=== PATIENT | male | born 1955 | race Caucasian/White ===

== ENCOUNTER 2019-03-13 13:41 | Outpatient (CLI) | payer OTHER, SELFPAY ==
--- NOTE | 2019-03-13 16:51 | PDOC.EEG ---
Neurology EEG EEG: [facility] Department of Neurology EEG REPORT Date of Recordin03/13/19 Interpreting Physician: Dr. Cherelle Fagan PCP/Referring Provider: Dr. Farzana Meyers Reason for study: Mr. Ghosh is a 63 year-old man with known KERI who has had spells of generalized weakness and fatigue, weeks to months apart, concerning for seizure. Current Medications: Synthroid, ASA. METHODS: A 21 channel digitized electroencephalogram was performed in the [facility] Clinical Neurophysiology Laboratory. The 10/20 international system of electrode placement was used and bipolar and referential electrode montages were recorded. In addition to EEG the patient was monitored for EKG and lateral/vertical eye movements. Activation procedures of photic stimulation and hyperventilation were performed if applicable. Video was used during activation procedures and during events where applicable. The duration of the recording was 30 minutes. DESCRIPTION OF EEG: The patient was noted to be awake, drowsy, and asleep during the recording. During maximal wakefulness an 11-Hz posterior background rhythm was present which was poorly-modulated, symmetrical, reactive to eye opening, and of moderate voltage. With eye opening the background activity changed to a low voltage mixture of alpha, beta, and occasional theta range frequencies. Faster frequencies were present in the bilateral anterior head regions. There was a normal anterior-posterior voltage gradient. During drowsiness, there was attenuation of the posterior dominant background rhythm and vertex waves. Stage II sleep was present with symmetrical sleep spindles, K-complexes, and vertex waves. During sleep, he was noted to snore moderately, have one period of apnea lasting ~5 seconds, and had several arousals out of sleep; all consistent with his known history of KERI. Activating Procedures: Photic stimulation was performed which produced no posterior driving response. Hyperventilation was performed with moderate effort and produced no physiological slowing of the background. EKG: EKG revealed normal sinus rhythm. INTERPRETATION: This EEG is normal during the awake and sleep states as well as during photic stimulation and hyperventilation. PRIOR EEG: none CLINICAL CORRELATION: No focal regions of cerebral dysfunction or epileptiform activity was present. Epilepsy remains a clinical diagnosis and a normal EEG does not rule out epilepsy. Clinical correlation is advised. Cherelle Fagan MD
== END 2019-03-13 14:01 ==
PROVIDERS: PCP Nurse Practitioner Family; Visit Provider Nurse Practitioner Family
DX: R40.4 Transient alteration of awareness (principal); R56.9 Unspecified convulsions; R53.1 Weakness; R53.83 Other fatigue; R25.1 Tremor, unspecified
CPT/HCPCS: 95819

== ENCOUNTER 2019-12-11 18:01 | Emergency (ER) | payer OTHER, SELFPAY ==
[2019-12-11] VITALS (36 sets, daily range): BP systolic 122–176; BP diastolic 74–154; PULSE 68–141; RESP 7–27; TEMP 36.1–36.5; O2SAT 95–98
--- NOTE | 2019-12-11 18:00 | RT.EKG_ITS ---
APPROVED REPORT Exam: Resting ECG Patient Location: E HR:133 bpm ECG Measurements Heart Rate 133 AXIS AR 143 P 35 QRSd 89 QRS -13 QT 287 T 112 QTc 429 Conclusion Sinus tachycardia...rate> 99 Inferior infarct, old...Q >35mS, II III aVF Nonspecific T abnormalities, lateral leads...T <-0.10mV, I aVL V5 V6
--- NOTE | 2019-12-11 18:30 | ED.GENADUL_ITS ---
Discharge Plan Disposition Patient Disposition: [facility] Condition: Serious Discharge Details Chief Complaint: Chest Pain Clinical Impression: Non-ST elevation FL (NSTEMI) Primary Care Provider: Nerissa Fish ED Provider: Tonia Roblero Home Meds and New Rx's Prescriptions: No Action aspirin 325 mg Tablet 325 mg PO DAILY RF: 0 levothyroxine 75 mcg tablet 75 mcg PO RF: 0 Medical Decision Making Patient is a pleasant 64-year-old gentleman presenting today with chief complaint of chest pain. He reports approximate 20 minutes prior to arrival he was working pulling propane closes when he began having some tightness in the center of his chest that radiated up into his jaw. He states that this would subside with rest. Over from when he walked back to the truck he began again. He is currently denying any tightness. However, she is feeling slightly lightheaded. Denies pain radiating into his back. Has not had symptoms like this historically. He did continue to work for a while with the symptoms and continues to have the waxing and waning based on activity level. He denies any personal familial history of cardiac illness. She denies any shortness of breath. No nausea or vomiting. No recent travel. No history of blood clots. Patient does not smoke cigarettes, use any illicit drugs, drink alcohol. Has been taking his medication as prescribed which includes a full dose aspirin. On exam, patient's obese, nontoxic-appearing. He is noted be quite tachycardic with a heart rate of 130. With him speaking in full sentences does not appear to be in any respiratory distress. I do not appreciate any murmurs, rubs or gallops. No pain in his lower extremities with palpation. Plan report for ACS evaluation. Also considered other pathology such as pulmonary embolism although the patient's lack of shortness of breath and normal oxygen saturation fine is less likely. Patient has pulses equal in extremities, the pain he is describing is not consistent with dissection. He does not have infectious symptoms. Primarily concern at this point for ACS. EKG was reviewed by Dr. Teran. Patient is in sinus tachycardia with a rate of 133. Nonspecific T wave abnormalities in the lateral leads. FINDINGS: Lungs: No focal consolidation. Pleural space: No pleural effusion. No pneumothorax. Heart/Mediastinum: Heart size is borderline. Bones/joints: There are multilevel degenerative changes in the spine. IMPRESSION: No acute abnormality identified. Reevaluated the patient. Despite him being in a resting state on his cell phone, his heart rate continues to be in the 130s. This does change based on his position does not consistent with SVT. His story is more consistent with sinus tachycardia. His labs were reviewed, I also discussed these findings with the patient. He has no evidence to suggest an infection such as leukocytosis. Stable H&H. Creatinine is slightly elevated at 1.31. I do not have any previous testing for the patient. No electrolyte abnormalities. TSH is pending. Initial troponin is within normal limits. Plan for second troponin. Based on the continued tachycardia do feel that moving forward with CT for PE protocol to evaluate for pulmonary embolism as well as aortic source of his discomfort would be appropriate. Patient reports that currently he is feeling woozy but no CP, SOB, back pain or other radiating pain. Discussed risks/benefits of CT, patient agrees to move forward with the imaging. Patient been having symptoms of palpitations. Will repeat ECG. He continues to deny any pain or shortness of breath with the symptoms. Heart rate is unchanged. ECG significant for slight elevation now in I and aVL. Patient reports no symptoms now. CT reviewed by radiologist: FINDINGS: Pulmonary arteries: There is adequate opacification of blood within the main pulmonary outflow tract, right and left pulmonary arteries and major lobar branches to both lungs with no pulmonary emboli detected within these vessels. Small pulmonary arterial branch heterogeneity has an appearance typical of well described artifact and emboli involving segmental or smaller branches cannot be excluded in the lower lung zones. (AJR 2015; 205: 271-277). Aorta: Unremarkable. No aortic aneurysm. No aortic dissection. Lungs: A few indistinct stranded parenchymal densities are seen at both posterior lung bases with the remaining pulmonary parenchyma otherwise clear throughout and no other sites of consolidation or collapse detected. Pleural space: No pneumothorax or pleural effusion detected. Heart: Heart is enlarged and there is no evidence of pericardial effusion or right heart strain. Lymph nodes: No mediastinal or hilar mass or adenopathy detected. Bones/joints: Thoracic spondylosis is evident with no recent fractures or other acute osseous lesions detected at thoracic levels.Soft tissues: A 5 cm partially exophytic fluid attenuation cyst is seen along the posteromedial margin of the right hepatic lobe. IMPRESSION: 1. No acute pulmonary emboli are detected involving the right or left pulmonary arteries or major lobar branches to either lung. Small pulmonary arterial branch heterogeneity has an appearance typical of well described artifact and emboli involving segmental or smaller branches cannot be excluded in the lower lung zones. (AJR 2015; 205: 271-277). 2. Minimal stranded bibasilar densities identified involving posterior lower lobes with no other consolidation collapse detected. No other evidence of an acute cardiopulmonary process detected. Troponin is now 0.09. Will obtain repeat ECG. Patient has elevated troponin and dynamic ECG changes consistent with NSTEMI. Discussed with patient. Will begin on Heparin drip. Discussed with patient, standard screening questions discussed, no elevated bleeding risk identified. Consulted Dr. Bradley with cardiology at [facility]. He reviewed ECGs. Concern for a. flutter. Discussed history. Plavix 600mg. Advised starting patietn on Metoprolol IV. They will accept the patient. Dr. White will be the accepting physician to [facility]. Patient received in total, full dose aspirin prior to arrival, 600 mg Plavix, heparin drip, 5 mg IV metoprolol. He is resting, continues with a heart rate of 130. Asymptomatic. Will be transferred via EMS. I did touch base with the patient's , Tessa, can be reached at [phone]. HPI General Mode of arrival: ambulatory . Date/Time Provider Initiated Documentation: 12/11/19 18:30 . Limitations to Documentation: no limitations . Information obtained by: patient and RN notes reviewed . History of Present Illness 64 year old M presents to the emergency department with the chief complaint of chest discomfort, described as mild, with intensity rated at 3 (reports currently resolved, had been tight like I was running really hard). Quality is described as other (tight), and is localized to the chest. Patient neck. Patient started experiencing this minute(s) (30) and it has been intermittent. Immobilization improves symptom(s), Movement worsens symptoms . Patient notes chest pain; denies cough, diaphoresis, fever/chills, headaches, loss of appetite, nausea/vomiting, rash, shortness of breath and weakness. Patient did receive the following treatments prior to arrival, none Related Data Home Medications Medication Instructions Recorded Confirmed aspirin 325 mg PO DAILY 12/11/19 12/11/19 levothyroxine 75 mcg PO 12/11/19 Allergies Allergy/AdvReac Type Severity Reaction Status Date / Time No Known Allergies Allergy Unverified 12/11/19 18:20 General Stated Complaint: Chest Pain RUTHIE: 2 Review of Systems Constitutional Constitutional: Reports as per HPI, Denies chills, Denies fever(s), Denies headache(s), Denies lethargy and Denies poor appetite Eyes Eyes: Denies change in vision ENT Ears, Nose, Mouth, and Throat: Denies dizziness and Denies headache(s) Cardiovascular Cardiovascular: Reports as per HPI, Reports chest pain, Denies chest pain at rest, Reports chest pain with activity, Reports diaphoresis, Reports rapid heart rate, Denies irregular heart rhythm, Denies dyspnea and Denies dyspnea on exertion Respiratory Respiratory: Reports as per HPI, Denies chest congestion, Denies cough, Denies pain on inspiration, Denies pain with cough, Denies dyspnea, Denies dyspnea on exertion and Denies wheezing Gastrointestinal Gastrointestinal: Reports as per HPI, Denies abdominal pain, Denies diarrhea, Denies nausea and Denies vomiting Genitourinary Genitourinary: Denies system reviewed and no additional complaints, except as documented (denies change in urinary habits) Musculoskeletal Musculoskeletal: Reports as per HPI and Denies back pain Integumentary/Breasts Skin/Breast: Reports as per HPI and Denies rash Neurologic Neurologic: Reports as per HPI, Denies dizziness and Denies headache(s) Allergic/Immunologic Allergic/Immunologic: Denies wheezing PFSH Social History Smoking/Tobacco Use Status: Never Alcohol Intake: never Drug use: Never Substance use type: does not use Do you feel safe at home: Yes Do you feel safe in your relationship?: Yes Exam Const General: cooperative, healthy appearing, comfortable, no acute distress and well developed Nutritional Appearance: well nourished and obese Orientation: alert, awake and oriented x3 HENMT Head: normal to inspection Ears: hearing grossly normal bilaterally Mouth: moist mucous membranes Chest Chest: normal inspection of the chest, normal palpation of entire chest wall and no crepitus Resp Effort & Inspection: normal respiratory effort, able to speak in complete sentences and no respiratory distress Auscultation: clear to auscultation bilaterally, no rales, no rhonchi and no wheezes Cardio Rate: tachycardic Rhythm: regular rhythm Heart Sounds: S1 normal and S2 normal GI Inspection: normal to inspection, no edema and non-distended Palpation: soft, no hepatosplenomegaly, not firm, no guarding, not rigid and nontender Auscultation: normal bowel sounds Back/Spine/Pelvis Back: no CVA tenderness Thoracic/Lumbar Spine: thoracic and lumbar spine normal to inspection Skin General skin exam: no rashes or lesions noted Trauma: no lacerations or abrasions Neuro General: patient alert, patient awake and patient oriented x3 Cognition: normal cognition Speech: speech normal Gait: normal gait Extrem General: normal to inspection, capillary refill normal, no pedal edema, no calf tenderness and normal gait Psych Appearance: grossly normal and well kempt Mental Status: mental status grossly normal Speech and Movement: speech and movement normal Course Vital Signs Vital signs: Vital Signs Temperature 36.1 C L 12/11/19 18:12 Pulse 130 H 12/11/19 18:12 Respiratory Rate 22 12/11/19 18:12 Blood Pressure 122/86 12/11/19 18:12 Pulse Oximetry 96 12/11/19 18:12 Temperature 36.1 C L 12/11/19 18:12 Temperature Source Temporal Artery Scan 12/11/19 18:12 Pulse 130 H 12/11/19 18:12 Respiratory Rate 22 12/11/19 18:12 Blood Pressure 122/86 12/11/19 18:12 Blood Pressure Position Supine 12/11/19 18:12 Pulse Oximetry 96 12/11/19 18:12 Oxygen Delivery Method Room Air 12/11/19 18:12 Oxygen Flow Rate 0 12/11/19 18:12 Pain Level 3 12/11/19 18:12
--- NOTE | 2019-12-11 18:30 | DI.RAD_ITS ---
EXAM: XR PORTABLE CHEST AP CLINICAL HISTORY: CP. TECHNIQUE: 2D digital imaging was performed. COMPARISON: No exams were available for comparison FINDINGS: LUNGS: Clear. No pleural abnormality seen. HEART: Normal. MEDIASTINUM: Normal. OTHER FINDINGS: None. IMPRESSION: No acute pulmonary findings. DATA REPOSITORY: RADIATION DOSE DELIVERED: Total DLP
[2019-12-11 18:49] LABS: Abs Immature Grans 0.02 10^3/uL (0.0-0.06); Absolute Basophil Count 0.06 10^3/uL (0.0-0.2); Absolute Eosinophil Count 0.29 10^3/uL (0.0-0.7); HCT 45.3 % (40.0-50.0); Immature Grans % 0.3; MCH 30.1 pg (27.0-33.0); MCHC 35.3 % (32.0-36.0); MCV 85.2 fL (80-95); MPV 11.1 fL (8.0-11.0); Monocytes % 10.4; Neutrophils % 57.3; Nucleated RBC 0 %; Platelet Count 201 10^3/uL (130-400); RBC 5.32 10^6/uL (4.36-5.78); WBC 5.77 10^3/uL (4.4-10.8)
[2019-12-11 19:03] LABS: Prothrombin Time 10.2 sec (9.3-11.0)
[2019-12-11 19:04] LABS: ALT 49 U/L (16-63); AST 26 U/L (15-37); Albumin 4.2 g/dL (3.4-5.0); Alkaline Phosphatase 75 U/L (46-116); Anion Gap 9.8 mmol/L (3-11); BUN 12 mg/dL (7-18); Bilirubin, Total 0.7 mg/dL (0.2-1.0); CO2 23.2 mmol/L (21.0-32.0); CREATININE 1.31 mg/dL (0.70-1.30); Chloride 107 mmol/L (98-107); Estimated GFR 54.91 (mL/min/1.73m2); Glucose 104 mg/dL (74-106); Magnesium 2.1 mg/dL (1.8-2.4); Potassium 3.8 mmol/L (3.5-5.1); Sodium 140 mmol/L (136-145); Total Protein 7.8 g/dL (6.4-8.2); Troponin I < 0.05 ng/mL (<0.06)
--- NOTE | 2019-12-11 19:15 | DI.CT_ITS ---
EXAM: CT CHEST PE CTA CLINICAL HISTORY: CP, HR 140s. TECHNIQUE: Imaging Protocol: Axial CT angiography was performed with multi-slice acquisition and mu lti-planar and/or 3D reconstructions. CONTRAST MATERIAL: Intravenous: Omnipaque 350 Contrast volume:structured data in ml COMPARISON: No exams were available for comparison FINDINGS: CT angiography of the chest was performed with intravenous infusion of 100 cc of Omnipaque 350. The lungs are predominantly clear. There is a 5 millimeter right fissural nodule. There is a calcif ied left lower lobe nodule. There is poor inspiration with minimal areas of atelectasis and/or scarr ing dependently. No focal consolidation. No pleural effusion. No pleural effusion. Tracheobronchia l tree appears intact. No evidence of pulmonary embolic disease. Thoracic aorta is of normal diameter, no thoracic aortic an eurysm or dissection, major branch vessels appear intact. No mediastinal or hilar adenopathy. Images obtained through the upper abdomen show unremarkable appearance of the visualized portions of the liver, spleen, pancreas, adrenals, and kidneys except for an apparent posteriorly located right l obe hepatic cyst.. IMPRESSION: Negative CT angiogram of the chest. No evidence of pulmonary embolic disease. RADIATION DOSE DELIVERED: 578.41mGy.cm Total DLP 578.41mGy.cm Total DLP DATA REPOSITORY: All CT scans at this facility are submitted to the National Radiology Data Registry (NRDR) Dose Index Registry (DIR) with the [employer] (A[employer]). RADIATION OPTIMIZATION: All CT scans at this facility use at least one of these dose optimization te chniques: automated exposure control; mA and/or kV adjustment per patient size (includes targeted exa ms where dose is matched to clinical indication); or iterative reconstruction.
--- NOTE | 2019-12-11 19:24 | DI.VRAD_ITS ---
PROCEDURE INFORMATION: Exam: XR Chest, 1 View Exam date and time: 12/11/2019 7:00 PM Age: 64 years old Clinical indication: Chest pain; Patient HX: Cp TECHNIQUE: Imaging protocol: XR of the chest Views: 1 view. COMPARISON: No relevant prior studies available. FINDINGS: Lungs: No focal consolidation. Pleural space: No pleural effusion. No pneumothorax. Heart/Mediastinum: Heart size is borderline. Bones/joints: There are multilevel degenerative changes in the spine. IMPRESSION: No acute abnormality identified. Dictated and Authenticated by: Jeramy Dave MD. Ordering:QUIANA Randall MD
[2019-12-11] MEDS: Omnipaque 350 MG/ML 100 ML BTL IJ (19:37)
[2019-12-11] MEDS: Normal Saline - Diluent 50 ML VIAL IV (19:38)
[2019-12-11 19:43] LABS: TSH (W/Ref FT4) 3.98 uIU/mL (0.36-3.74)
--- NOTE | 2019-12-11 19:45 | RT.EKG_ITS ---
APPROVED REPORT Exam: Resting ECG Patient Location: E HR:133 bpm ECG Measurements Heart Rate 133 AXIS PA 144 P 40 QRSd 82 QRS -16 QT 282 T 21 QTc 419 Conclusion Sinus tachycardia, rate 133. Inferior infarct, old...Q II III aVF ST elevation, consider lateral injury I aVL
[2019-12-11 19:47] LABS: D-Dimer 662 ng/mlFEU (<500)
[2019-12-11] MEDS: Lactated Ringers 1,000 ML 250 ML IV (19:50)
[2019-12-11 19:59] LABS: FREE T4 1.09 ng/dL (0.76-1.46)
--- NOTE | 2019-12-11 20:42 | DI.VRAD_ITS ---
PROCEDURE INFORMATION: Exam: CT Angiography Chest With Contrast Exam date and time: 12/11/2019 7:44 PM Age: 64 years old Clinical indication: Chest pain; Patient HX: Cp, hr 140s TECHNIQUE: Imaging protocol: Computed tomographic angiography of the chest with intravenous contrast. 3D rendering (Not supervised by radiologist): MIP and/or 3D reconstructed images were created by the technologist. COMPARISON: CR XR PORTABLE CHEST AP 12/11/2019 6:51 PM FINDINGS: Pulmonary arteries: There is adequate opacification of blood within the main pulmonary outflow tract, right and left pulmonary arteries and major lobar branches to both lungs with no pulmonary emboli detected within these vessels. Small pulmonary arterial branch heterogeneity has an appearance typical of well described artifact and emboli involving segmental or smaller branches cannot be excluded in the lower lung zones. (AJR 2015; 205: 271-277). Aorta: Unremarkable. No aortic aneurysm. No aortic dissection. Lungs: A few indistinct stranded parenchymal densities are seen at both posterior lung bases with the remaining pulmonary parenchyma otherwise clear throughout and no other sites of consolidation or collapse detected. Pleural space: No pneumothorax or pleural effusion detected. Heart: Heart is enlarged and there is no evidence of pericardial effusion or right heart strain. Lymph nodes: No mediastinal or hilar mass or adenopathy detected. Bones/joints: Thoracic spondylosis is evident with no recent fractures or other acute osseous lesions detected at thoracic levels. Soft tissues: A 5 cm partially exophytic fluid attenuation cyst is seen along the posteromedial margin of the right hepatic lobe. IMPRESSION: 1. No acute pulmonary emboli are detected involving the right or left pulmonary arteries or major lobar branches to either lung. Small pulmonary arterial branch heterogeneity has an appearance typical of well described artifact and emboli involving segmental or smaller branches cannot be excluded in the lower lung zones. (AJR 2015; 205: 271-277). 2. Minimal stranded bibasilar densities identified involving posterior lower lobes with no other consolidation collapse detected. No other evidence of an acute cardiopulmonary process detected. Dictated and Authenticated by: Charan Sierra MD. Ordering:QUIANA Randall MD
--- NOTE | 2019-12-11 21:30 | RT.EKG_ITS ---
APPROVED REPORT Exam: Resting ECG Patient Location: E HR:134 bpm ECG Measurements Heart Rate 134 AXIS NM 149 P 42 QRSd 84 QRS -15 QT 278 T 31 QTc 415 Conclusion Sinus tachycardia. Rate 134 Inferior infarct, old +ST elevation, lateral leads, I aVL
[2019-12-11 22:00] LABS: Troponin I 0.09 ng/mL (<0.06)
[2019-12-11] MEDS: Clopidogrel 300 MG TAB 600 MG PO (23:04)
[2019-12-11] MEDS: Metoprolol 5 MG/5 ML VIAL IVP (23:07)
== END 2019-12-11 23:55 | disposition short-term general hospital (02) ==
PROVIDERS: Emergency Provider Physician Assistant; PCP Nurse Practitioner Family
DX: I21.4 Non-ST elevation (NSTEMI) myocardial infarction (principal)
CPT/HCPCS: 71275; 80053; 93005; 96361; 96365; 96375; 96376; 99285; 71045; 83735; 84439; 84443; 84484; 85025; 85379; 85610; 85730; 93010; J3490